=== PATIENT | female | born 1955 | race Caucasian/White ===

== ENCOUNTER 2024-01-22 07:59 | Day surgery (SDC) | payer OTHER ==
[2024-01-22] VITALS (13 sets, daily range): BP systolic 108–184; BP diastolic 58–97
[~2024-01-22] VITALS: Ht 154 cm; Wt 50.2 kg
[~2024-01-22 07:59] MED LIST: ATEN25 PO; Acetaminophen 500 MG Tab PO SCH; CeFAZolin Sodium 2,000 MG in NS 100 ML IV SCH; Chlorhexidine Mouth Care 15 ML UDC MT SCH; LOSA50 PO; Lactated Ringer's 1,000 ML IV SCH; OxyCODONE HCL 10 MG TABCR PO SCH; Ropivacaine 0.5% HCl/Pf 123.125 MG,EPINEPHrine HCL 0.25 MG,Ketorolac Tromethamine 15 MG... INFIL SCH
[2024-01-22] MEDS ORDERED: FentaNYL Citrate 50 MCG/ML 2 ML Injection ONE (08:00)
[2024-01-22] MEDS ORDERED: Midazolam HCl 1MG / ML 2ML Vial ONE (08:01)
[2024-01-22] MEDS ORDERED: Lidocaine HCl 2% 20 ML MDV ONE (09:01)
[2024-01-22] MEDS ORDERED: propofoL 20 ML IV ONE (09:01)
[2024-01-22] MEDS ORDERED: Dexamethasone Sod Phos 10 MG/ML 1ML VIAL ONE (09:40)
[2024-01-22] MEDS ORDERED: Ondansetron HCl 2 MG / ML 2ML Vial ONE (09:40)
[2024-01-22] MEDS ORDERED: Magnesium Hydroxide Conc 10 ML UDC PO PRN (10:55)
[2024-01-22] MEDS ORDERED: OxyCODONE HCL 5 MG TAB PO PRN ×2 (10:55)
[2024-01-22] MEDS ORDERED: Lactated Ringer's 1,000 ML IV SCH (10:55)
[2024-01-22] MEDS ORDERED: Metoclopramide HCl 5MG / ML 2ML Vial IV PRN (10:55)
[2024-01-22] MEDS ORDERED: Ondansetron HCl 2 MG / ML 2ML Vial IV PRN (10:55)
[2024-01-22] MEDS ORDERED: Bisacodyl 10 MG Supp PR PRN (11:00)
[2024-01-22] MEDS ORDERED: HYDROmorphone HCl/Pf 1MG SYR IV PRN (11:00)
[2024-01-22] MEDS ORDERED: DiphenhydrAMINE HCL 25 MG Cap PO PRN (11:00)
[2024-01-22] MEDS ORDERED: Promethazine HCl 25 MG Tab PO PRN (11:05)
[2024-01-22] MEDS ORDERED: Ketorolac Tromethamine 15mg Vial IV SCH (12:00)
[2024-01-22] MEDS ORDERED: CeFAZolin Sodium 2,000 MG in NS 100 ML IV SCH (16:00)
[2024-01-22] MEDS ORDERED: Acetaminophen 500 MG Tab PO SCH (16:00)
[2024-01-22] MEDS ORDERED: Calcium Carbonate 500 MG Tab Chew PO PRN (16:30)
--- NOTE | 2024-01-22 18:57 | NUR ---
SHIFT SUMMARY POD0 L TKA, A/X4, VSS, TOLERATING PO, PAIN WELL MANAGED, WORKED WITH THERAPY TODAY, POST OP VOID COMPLETED, MEDS ORDERED. PT REPORTS HEART BURN AND STATED SHE TAKES TUMS AT HOME FOR IT, TUMS ORDERED AND GIVEN. NO ACUTE EVENTS THIS SHIFT, CALL LIGHT IN REACH.
[2024-01-22] MEDS ORDERED: Docusate Sodium 100 MG Cap PO SCH (21:00)
[2024-01-22] MEDS ORDERED: Losartan Potassium 50 MG Tab PO SCH (21:00)
[2024-01-22] MEDS ORDERED: Atenolol 25 MG Tab PO SCH (21:00)
[2024-01-23 00:42] VITALS: BP 145/82
--- NOTE | 2024-01-23 04:29 | NUR ---
SHIFT SUMMARY PT IS POD1 FOR A L TKA W/ DR. PETERSEN. 1 ASST W/ FWW AND GB. PT VOIDING APPROPRIATELY. VSS. MEDICATED W/ SCHEDULED PAIN MEDS W/ TOLERABLE RESULTS. AQUACEL REMAINS C/D/I. PEDAL PULSE PRESENT IN L FOOT. PT ASSISTED W/ DRESSING. NATHALIE TENORIO, POLAR PACK ON. USING CALL LIGHT APPROPRIATELY. PLAN TO D/C TODAY AFTER PT.
[2024-01-23 04:45] LABS: BASOPHILS ABSOLUTE AUTO 0.03 K/mm3 (0.00-0.23); BASOPHILS PERCENT AUTO 0 % (0-2); EOSINOPHILS ABSOLUTE AUTO 0.02 K/mm3 (0.00-0.68); EOSINOPHILS PERCENT AUTO 0 % (0-6); Hematocrit 28.5 % (33.0-51.0); Hemoglobin 9.9 g/dL (11.5-16.0); IMMATURE GRAN ABSOLUTE AUTO 0.03 K/mm3 (0.00-0.10); IMMATURE GRAN PERCENT AUTO 0 % (0-1); LYMPHOCYTES ABSOLUTE AUTO 1.51 K/mm3 (0.84-5.20); LYMPHOCYTES PERCENT AUTO 14 % (21-46); MONOCYTES PERCENT AUTO 9 % (4-13); Mean Corpuscular HGB 30.3 pg (26.0-34.0); Mean Corpuscular HGB Conc 34.7 g/dL (31.5-36.5); Mean Corpuscular Volume 87 fL (80-100); Mean Platelet Volume 10.3 fL (9.1-12.4); NEUTROPHILS ABSOLUTE AUTO 8.53 K/mm3 (1.96-9.15); NEUTROPHILS PERCENT AUTO 77 % (41-73); Platelet Count 258 K/mm3 (150-400); RDW Coefficient Variation 11.9 % (11.7-14.2); RDW Standard Deviation 38.2 fL (35.1-46.3); Red Blood Cell Count 3.27 M/mm3 (3.80-5.20); White Blood Cell Count 11.12 K/mm3 (4.00-11.30)
[2024-01-23 05:08] LABS: Bun/Creatinine Ratio 21.9 (12.0-20.0); Calcium, Blood 8.9 mg/dL (8.5-10.1); Creatinine, Blood 0.64 mg/dL (0.40-1.00); Potassium, Blood 4.2 mmol/L (3.5-5.5)
[2024-01-23 05:28] VITALS: BP 152/86
[2024-01-23] MEDS ORDERED: ACET500 PO (06:46)
[2024-01-23] MEDS ORDERED: ASPI81CH PO (06:47)
[2024-01-23] MEDS ORDERED: OXAYDO5 M3 PO (06:47)
[2024-01-23 07:51] VITALS: BP 160/80
--- NOTE | 2024-01-23 08:46 | NUR ---
DISCHARGE SUMMARY POD1 L TKA, A/OX4, VSS, TOLERATING PO, AMBULATING WELL, VOIDING INDEPENDENTLY, AQUACELL DRESSING C/D/I, WORKED WITH THERAPY. DISCUSSED DC INSTRUCTIONS INCLUDING HOME CARE, MEDICATIONS, AND FOLLOW UP APPOINTMENTS. NO QUESTIONS AT THIS TIME, PROVIDED HER WITH EXTRA DRESSINGS TO CHANGE IN ONE WEEK.
[2024-01-24] MEDS ORDERED: Aspirin 81 MG Chew PO SCH (09:00)
== END 2024-01-23 08:20 | disposition home or self-care (01) ==
LOC: ORSCMMR 07:59 → ORD 10:15 → ORSCMMR 10:53 → SURS 10:53 → ORSCMMR 01-23 08:20
PROVIDERS: Orthopaedic Surgery
PROC: 8E0Y0CZ Robotic Assisted Procedure of Lower Extremity, Open Approach (ICD-10-PCS; principal; 2024-01-22 10:15)
PROC: 0SRD0JA Replacement of Left Knee Joint with Synthetic Substitute, Uncemented, Open Approach (ICD-10-PCS; principal; 2024-01-22 10:15)
DX: M17.12 Unilateral primary osteoarthritis, left knee (principal); I10 Essential (primary) hypertension; Z79.899 Other long term (current) drug therapy
CPT/HCPCS: 27447; 0055T; 36415; 73560-LT; 80048; 83735; 85025; 97110; 97162; 97530; A9270; C1713; C1776; J0171; J0690; J0735; J1100; J1885; J2250; J2405; J2704; J2795; J3010; J7120

== ENCOUNTER 2024-10-07 09:04 | Day surgery (SDC) | payer OTHER ==
[2024-10-07] VITALS (15 sets, daily range): BP systolic 111–165; BP diastolic 54–87
[~2024-10-07] VITALS: Ht 154.9 cm; Wt 52.1 kg
[~2024-10-07 09:04] MED LIST changes: +ACET500 PO; +ASPI81CH PO; +OXAYDO5 M3 PO; +Tranexamic Acid 100 ML IV SCH; +[UNRECOGNIZED DRUG - OTHER]
[2024-10-07] MEDS ORDERED: propofoL 20 ML IV ONE (09:38)
[2024-10-07] MEDS ORDERED: Dexamethasone Sod Phos 10 MG/ML 1ML VIAL ONE (09:44)
[2024-10-07] MEDS ORDERED: Ketorolac Tromethamine 30mg Vial ONE (09:44)
[2024-10-07] MEDS ORDERED: Ondansetron HCl 2 MG / ML 2ML Vial ONE (09:44)
--- NOTE | 2024-10-07 09:44 | NUR ---
Ambulatory in Day Surgery. History, Chart, Medications and Allergies reviewed before start of procedure. Lungs clear T/O to Auscultation. Patient confirms NPO status and agrees with scheduled surgery. Pre-Op teaching done. Pt verbalizes understanding. PT BELONGINGS PLACED UNDERNEATH GURNEY FOR SAFEKEEPING. PT GLASSES TAKEN TO PACU FOR SAFEKEEPING.
[2024-10-07] MEDS ORDERED: FentaNYL Citrate 50 MCG/ML 2 ML Injection ONE (10:25)
[2024-10-07] MEDS ORDERED: Bupivacaine 0.5% Inj 10 ML Vial ONE (10:46)
[2024-10-07] MEDS ORDERED: propofoL 50 ML IV ONE (10:46)
[2024-10-07] MEDS ORDERED: ePHEDrine Sulfate 50 MG/ML 1ML Injection ONE (11:10)
[2024-10-07] MEDS ORDERED: Metoclopramide HCl 5MG / ML 2ML Vial IV PRN (11:15)
[2024-10-07] MEDS ORDERED: Magnesium Hydroxide Conc 10 ML UDC PO PRN (11:15)
[2024-10-07] MEDS ORDERED: Ondansetron HCl 2 MG / ML 2ML Vial IV PRN ×2 (11:15→11:30)
[2024-10-07] MEDS ORDERED: OxyCODONE HCL 5 MG TAB PO PRN ×2 (11:15)
[2024-10-07] MEDS ORDERED: Promethazine HCl 25 MG Tab PO PRN (11:20)
[2024-10-07] MEDS ORDERED: Bisacodyl 10 MG Supp PR PRN (11:20)
[2024-10-07] MEDS ORDERED: DiphenhydrAMINE HCL 25 MG Cap PO PRN (11:25)
[2024-10-07] MEDS ORDERED: HYDROmorphone HCl/Pf 1MG SYR IV PRN ×3 (11:25→11:30)
[2024-10-07] MEDS ORDERED: FentaNYL Citrate 50 MCG/ML 2 ML Injection IV PRN ×2 (11:25→11:30)
[2024-10-07] MEDS ORDERED: ePHEDrine Sulfate 50 MG/ML 1ML Injection IV PRN (11:30)
[2024-10-07] MEDS ORDERED: Scopolamine Hydrobromide Patch TOP PRN (11:30)
--- NOTE | 2024-10-07 12:27 | NUR ---
REPORT GIVEN TO AUGUSTO TO ASSUME CARE OF PT AT THIS TIME.
[2024-10-07] MEDS ORDERED: Lactated Ringer's 1,000 ML IV SCH (14:00)
[2024-10-07] MEDS ORDERED: Phenylephrine HCl 100 MCG/ML-NS 10MLSYR (1MG/10ML) ONE (14:30)
[2024-10-07] MEDS ORDERED: Acetaminophen 500 MG Tab PO SCH (16:00)
[2024-10-07] MEDS ORDERED: Ketorolac Tromethamine 15mg Vial IV SCH (18:00)
--- NOTE | 2024-10-07 18:30 | NUR ---
SHIFT SUMMARY DENIES PAIN AND NAUSEA. PT HAS BEEN UNABLE TO GET OUT OF BED DUE TO SPINAL. EXPRESSES DESIRE TO GO HOME TONIGHT.
[2024-10-07] MEDS ORDERED: ASPI81CH PO (19:18)
[2024-10-07] MEDS ORDERED: OXYC5 PO (19:23)
[2024-10-07] MEDS ORDERED: DOCU100 PO (19:23)
--- NOTE | 2024-10-07 20:00 | NUR ---
DISCHARGE NOTE THIS RN ARRIVED TO PERFORM POST OP ASSESSMENT @ 1915. VSS, PT DENIES SOB OR CP. LUNG SOUNDS CLEAR, HYPOACTIVE BOWEL TONES. PT DENIES N/V. NO FLATTUS POST OP. TOLLERATING PO INTAKE. DENIES N/T T/O, ABLE TO MOVE ALL EXTREMITIES ON COMMAND. PT ABLE TO BEAR WEIGHT ON RLE, STABLE GAIT. AMBULATING TO THE BATHROOM TO VOID, 300 MLS W/O DIFFICULTY. DENIES DIZZINESS OR LIGHTHEADEDNESS W/AMBULATION OR POSITION CHANGES. AQUACEL ON RLE IS C/D/I. PT AND OFFERED POSTOP EDUCATION, ALL NEEDS AND QUESTIONS MET. DENIES FURTHER NEEDS. IV FROM R FORARM REMOVED. PT DENIES ANY PAIN AT THIS TIME, DRESSINGS GIVEN. ESCORTED OUT VIA WHEELCHAIR.
[2024-10-07] MEDS ORDERED: Atenolol 25 MG Tab PO SCH (21:00)
[2024-10-07] MEDS ORDERED: Docusate Sodium 100 MG Cap PO SCH (21:00)
[2024-10-07] MEDS ORDERED: Losartan Potassium 50 MG Tab PO SCH (21:00)
[2024-10-07] MEDS ORDERED: CeFAZolin Sodium 2,000 MG in NS 100 ML IV SCH (22:00)
[2024-10-08] MEDS ORDERED: Aspirin 81 MG Chew PO SCH (09:00)
== END 2024-10-07 20:01 | disposition home or self-care (01) ==
LOC: ORSCMMR 09:04 → ORD 09:30 → ORSCMMR 10:30 → ORD 10:30 → ORSCMMR 13:06 → SURS 16:16 → ORSCMMR 20:01
PROVIDERS: Orthopaedic Surgery
PROC: 8E0Y0CZ Robotic Assisted Procedure of Lower Extremity, Open Approach (ICD-10-PCS; principal; 2024-10-07 15:00)
PROC: 0SRC0JA Replacement of Right Knee Joint with Synthetic Substitute, Uncemented, Open Approach (ICD-10-PCS; principal; 2024-10-07 15:00)
DX: M17.11 Unilateral primary osteoarthritis, right knee (principal); I10 Essential (primary) hypertension; Z79.899 Other long term (current) drug therapy
CPT/HCPCS: 27447; 0055T; 73560-RT; A9270; C1713; C1776; J0171; J0690; J0735; J1100; J1885; J2371; J2405; J2704; J2795; J3010; J7120